=== PATIENT | male | born 1975 | race Caucasian/White ===

== ENCOUNTER 2016-07-20 11:08 | Emergency (ER) | payer OTHER, SELFPAY ==
[2016-07-20 11:24] VITALS: BP 110/72; PULSE 84; RESP 18; TEMP 98; O2SAT 98
--- NOTE | 2016-07-20 12:13 | C.PDOC ---
History Of Present Illness The patient reports that he slipped on ice 2-3 days ago injurying the left wrist. Patient reports that he braced the fall by hyperextending the wrist. Denies other injuries, numbness, weakness. Time Seen by Provider: 07/20/16 11:29 Chief Complaint (Nursing): Finger,Hand,&Wrist Past Medical History Vital Signs: Last Vital Signs Temp 98.0 F 07/20/16 11:22 Pulse 84 07/20/16 11:22 Resp 18 07/20/16 11:22 BP 110/72 07/20/16 11:22 Pulse Ox 98 07/20/16 14:33 - Medical History PMH: Denies: Chronic Kidney Disease Surgical History: Appendectomy (12/26/13) - [facility] Procedures LAPAROSCOP APPENDECTOMY (12/26/13) Family History: States: Unknown Family Hx - Social History Hx Tobacco Use: Yes Hx Alcohol Use: No Hx Substance Use: No - Immunization History Hx Tetanus Toxoid Vaccination: No Hx Influenza Vaccination: No Hx Pneumococcal Vaccination: No Physical Exam - Physical Exam Appears: Well, Non-toxic, No Acute Distress Skin: Warm, Dry Head: Atraumatic, Normacephalic Eye(s): bilateral: Normal Inspection Oral Mucosa: Moist Extremity: Normal ROM (pain with ulnar deviation but FROM otherwise to the left wrist), Tenderness ((+) tenderness to dorsal ulnar aspect of the left wrist), No Swelling Neurological/Psych: Oriented x3, Normal Speech, Normal Motor, Normal Sensation Gait: Steady ED Course And Treatment O2 Sat by Pulse Oximetry: 98 (on RA) Pulse Ox Interpretation: Normal - Other Rad X-Ray - Left Wrist X-Ray: Viewed By Me, Read By Radiologist Interpretation: PROCEDURE: Left Wrist Radiographs. . HISTORY: wrist injury. COMPARISON: None. FINDINGS: BONES: Normal. No fracture. JOINTS: Normal. No dislocation. SOFT TISSUES: Normal. OTHER FINDINGS: None. IMPRESSION: Normal left wrist radiographs. Medical Decision Making Medical Decision Making: Velcro wrist splint was applied by scale technician/nurse Disposition - Disposition Referrals: Brandie Goncalves MD [Staff Provider] - Disposition: HOME/ ROUTINE Disposition Time: 12:35 Condition: GOOD Additional Instructions: Follow up with the Orthopedist/Ortho clinic within 1 week. Return if worsened. Prescriptions: Acetaminophen [Tylenol] 325 mg PO Q6 PRN #30 tab PRN Reason: Pain, Moderate (4-7) Instructions: Wrist Sprain (ED) Forms: Work Excuse - Clinical Impression Clinical Impression: Wrist sprain
--- NOTE | 2016-07-20 13:22 | RAD ---
PROCEDURE: Left Wrist Radiographs. HISTORY: wrist injury COMPARISON: None. FINDINGS: BONES: Normal. No fracture. JOINTS: Normal. No dislocation. SOFT TISSUES: Normal. OTHER FINDINGS: None. IMPRESSION: Normal left wrist radiographs.
== END 2016-07-20 13:06 | disposition home or self-care (01) ==
LOC: C.ER 11:08
DX: S63.502A Unspecified sprain of left wrist, initial encounter (principal); W00.0XXA Fall on same level due to ice and snow, initial encounter